=== PATIENT | female | born 1960 | race Caucasian/White ===

== ENCOUNTER 2016-10-12 18:19 | Emergency (ER) | payer OTHER ==
[~2016-10-12] VITALS: Ht 154.9 cm; Wt 57.1 kg
[~2016-10-12 18:19] MED LIST: ASCORBIC ACID500 M3 PO; LIPITOR40 MG PO; VITAMIN D31000 UNIT PO
[2016-10-12] MEDS ORDERED: FLAX SEED OIL1 EACH PO (19:22)
[2016-10-12] MEDS ORDERED: FLEXERIL10 MG PO (20:27)
[2016-10-12] MEDS ORDERED: NAPROSYN500 MG PO (20:27)
[2016-10-12 21:00] VITALS: BP 147/94
== END 2016-10-12 21:00 | disposition home or self-care (01) ==
LOC: EME 18:19
DX: M54.2 Cervicalgia (principal); M62.830 Muscle spasm of back; R51 Headache; V49.40XA Driver injured in collision with unspecified motor vehicles in traffic accident, initial encounter; Z87.891 Personal history of nicotine dependence
CPT/HCPCS: 72040; 99281; 99284

== ENCOUNTER 2017-06-02 20:30 | Emergency (ER) | payer OTHER ==
[~2017-06-02] VITALS: Ht 154.9 cm; Wt 57.7 kg
[~2017-06-02 20:30] MED LIST changes: +FLAX SEED OIL1 EACH PO; +FLEXERIL10 MG PO; +NAPROSYN500 MG PO
[2017-06-02 23:51] LABS: HEMOGLOBIN 13.2 G/DL (11.9-15.5); MCH 26.6 PG (29.0-34.0); MCHC 32.2 G/DL (30.0-36.0); MCV 82.5 FL (83-99); NRBC (%) 0.3 /100 WBC (0-0); PLATELET COUNT 278 K/uL (156-360); RBC DIS.WIDTH-SD 41.8 % (39-53); RED BLOOD COUNT 4.97 M/uL (3.80-5.20); WHITE BLOOD COUNT 7.6 K/uL (4.1-10.2)
[2017-06-03 00:02] LABS: ALBUMIN 4.3 g/dL (3.2-4.8); CHLORIDE 107 mEq/L (99-109); POTASSIUM 3.6 mEq/L (3.7-5.4); SODIUM 143 mEq/L (136-147)
[2017-06-03 00:04] LABS: GLUCOSE 91 mg/dL (70-99); TOTAL PROTEIN 7.3 g/dL (6.4-8.3)
[2017-06-03 00:06] LABS: TOTAL BILIRUBIN 0.3 mg/dL (0.0-1.0)
[2017-06-03 00:08] LABS: ALKALINE PHOSPHATASE 53 IU/L (3-129); CREATININE 0.9 mg/dL (0.6-1.3); GFR ESTIMATE (CALCULATED) > 59 mL/min/
[2017-06-03 00:09] LABS: UREA NITROGEN (BUN) 11 mg/dL (9-23)
[2017-06-03 00:10] LABS: AST (GOT) 20 IU/L (2-34)
[2017-06-03 00:11] LABS: ALT (GPT) 19 IU/L (3-49); LIPASE 63 U/L (1.0-51.0)
[2017-06-03 00:43] LABS: APPEARANCE CLEAR ((CLEAR)); BILIRUBIN NEGATIVE; BLOOD NEGATIVE; COLOR STRAW ((YELLOW)); GLUCOSE (STRIP) NEGATIVE; KETONES 5; LEUKOCYTES NEGATIVE; NITRITE NEGATIVE; PROTEIN (STRIP) NEGATIVE; SPECIFIC GRAVITY 1.006 (1.000-1.030); UROBILINOGEN 0.2 MG/DL (0.2-1.0)
[2017-06-03] MEDS ORDERED: CIPRO500 MG PO (02:41)
[2017-06-03] MEDS ORDERED: FLAGYL500 MG PO (02:41)
[2017-06-03] MEDS ORDERED: PREDNISONE10 MG PO ×2 (02:49→02:51)
[2017-06-03 03:10] VITALS: BP 119/74
== END 2017-06-03 03:14 | disposition home or self-care (01) ==
LOC: EME 20:30
PROVIDERS: Physician Assistant
DX: K50.90 Crohn's disease, unspecified, without complications (principal); K64.8 Other hemorrhoids; R74.8 Abnormal levels of other serum enzymes; Z90.49 Acquired absence of other specified parts of digestive tract; Z87.891 Personal history of nicotine dependence
CPT/HCPCS: 74177; 80053; 81003; 83690; 85027; 99281; 99285; J2405; J2930; J3010; J7030

== ENCOUNTER → 2017-07-01 | Outpatient (CLI) | payer OTHER ==
[~2017-07-01] MED LIST changes: +CIPRO500 MG PO; +FLAGYL500 MG PO; +PREDNISONE10 MG PO
== END | disposition home or self-care (01) ==
LOC: CDC 15:50
DX: Z01.810 Encounter for preprocedural cardiovascular examination (principal)
CPT/HCPCS: 93000

== ENCOUNTER 2017-07-08 13:27 | Day surgery (SDC) | payer OTHER ==
[~2017-07-08] VITALS: Ht 154.9 cm; Wt 55.8 kg
[2017-07-08 13:48] VITALS: BP 127/78
[2017-07-08 19:15] VITALS: BP 109/63
== END 2017-07-08 20:10 | disposition home or self-care (01) ==
LOC: SDC
PROC: 0KBG0ZZ Excision of Left Trunk Muscle, Open Approach (ICD-10-PCS; principal; 2017-07-08)
DX: D17.9 Benign lipomatous neoplasm, unspecified (principal); K50.90 Crohn's disease, unspecified, without complications; Z87.891 Personal history of nicotine dependence
CPT/HCPCS: 88304; J0131; J0330; J0690; J1100; J2405; J3010; Q0175